=== PATIENT | male | born 1990 | race Caucasian/White ===

== ENCOUNTER → 2021-11-14 | Day surgery (SDC) | payer MEDICAID ==
[~2021-11-14] VITALS: Ht 165.1 cm; Wt 129.7 kg
[~2021-11-14] MED LIST: BUPIVACAINE HCL 0.5% (5MG/ML) 50ML ONE; DEXAMETHASONE 4MG/ML 1ML VIAL ONE; FENTANYL CITRATE/PF 50MCG/ML 2ML VIAL IV PRN; FENTANYL CITRATE/PF 50MCG/ML 2ML VIAL ONE; GLYCOPYRROLATE 0.2 MG/ML 2ML VIAL ONE; HYDROMORPHONE HCL/PF 2MG/ML CPJ IV PRN; HYDROMORPHONE HCL/PF 2MG/ML CPJ ONE; KETOROLAC 30MG/ML VIAL ONE; LACTATED RINGERS 1,000 ML IV SCH; LIDOCAINE HCL 1% 20ML VIAL (Pyxis) INJ ONE; LIDOCAINE HCL 1% 50ML VIAL (10MG/ML) ONE; MEPERIDINE HCL/PF 25MG/ML CPJ IV PRN; MIDAZOLAM HCL 2 MG/2 ML VIAL ONE; NEOSTIGMINE METHYLSULFATE 1MG/ML 10 ML VIAL ONE; ONDANSETRON HCL 4MG/2ML INJ IV PRN; ONDANSETRON HCL 4MG/2ML INJ ONE; POLYMYXIN B SULFATE 500000 UNITS/VIAL ONE; POLYVINYL ALCOHOL OPHTH DROPS 15ML BOTHEYE NR; PROPOFOL 200MG/20ML VIAL IV ONE; ROCURONIUM BROMIDE 10MG/ML VIAL 5ML IV ONE; SKIN ADHESIVE 0.7 GM EA TOP ONE; SUCCINYLCHOLINE CHLORIDE 200MG/10ML IV ONE
== END | disposition home or self-care (01) ==
LOC: OR 09:06
PROVIDERS: ATTEND Specialist
DX: K43.6 Other and unspecified ventral hernia with obstruction, without gangrene (principal); Z79.899 Other long term (current) drug therapy; Z98.890 Other specified postprocedural states; Z20.822 Contact with and (suspected) exposure to COVID-19
CPT/HCPCS: 49561; 49568; 87426; 88302; J0330; J1100; J1170; J1885; J2250; J2405; J2704; J2710; J3010; J3490